=== PATIENT | male | born 1970 | race Caucasian/White ===

== ENCOUNTER 2017-02-18 06:55 | Inpatient (IN) | payer MEDICARE ==
[2017-02-18] VITALS (15 sets, daily range): BP systolic 110–152; BP diastolic 57–92
[~2017-02-18] VITALS: Ht 190.5 cm; Wt 113.9 kg
[~2017-02-18 06:55] MED LIST: BACTRIM DS TAB1 EACH PO; CEPHALEXIN500 MG PO; CIPROFLOXACIN750 MG PO; CLINDAMYCIN150 MG PO; GLIPIZIDE 5MG TA5 MG PO; JANUVIA50 MG PO; KEFLEX 500MG.500 MG PO; LISINOPRIL 10MG10 MG PO; LISINOPRIL 5MG T5 MG PO; METFORMIN HCL850 MG PO; MULTI VITAMINS1 TA1 PO; NORCO 325 MG-101 TAB PO; RIFADIN 300MG300 MG PO; Tetracycline H500 MG PO
--- NOTE | 2017-02-18 13:29 | Anesthesia Record ---
Anesthesia Record Part II Discharge time: 1352 Destination: Second Floor PACU nurse assessment review? Yes Patient is: Awake, Stable Anesthesia complications? No at 3126
--- NOTE | 2017-02-18 13:29 | Anesthesia Record ---
Anesthesia Record Part I Total IV fluids: 1200 EBL (ml): 50 Urine Output: 0 Units of blood given: 0 B/P: 99/54 % SaO2: 94 Pulse: 87 Resps: 16 Temp: 97.6 Patient is: Nasal O2, Oral/nasal airway, Stable, Somnolent Stable to PACU at: 1322 at 1328
--- NOTE | 2017-02-18 14:59 | RADIOLOGY REPORT PS360 ---
KNEE-LIMITED 2 VIEWS-LT HISTORY: patella fx s/p orif ORDERING PHYSICIAN: Bennie Lebron MD PATIENT AGE: 47 years COMPARISON: ORIF of femoral fracture FINDINGS: Status post ORIF patellar fracture. There are 2 Vertical screws and cerclage wires present stabilizing the comminuted fracture which is in good alignment. Postsurgical gas is present along the knee joint and there are skin clips noted. IMPRESSION: Good alignment status post ORIF patellar fracture
--- NOTE | 2017-02-18 14:59 | RADIOLOGY REPORT PS360 ---
KNEE-LIMITED 2 VIEWS-LT HISTORY: Follow-up fracture ORIF LEFT PATELLA ORDERING PHYSICIAN: Bennie Lebron MD PATIENT AGE: 47 years COMPARISON: 02/15/2017 FINDINGS: Status post ORIF patellar fracture. There are 2 Vertical screws and cerclage wires present stabilizing the comminuted fracture which is in good alignment. Postsurgical gas is present along the knee joint and there are skin clips noted. IMPRESSION: Good alignment status post ORIF patellar fracture
[2017-02-19 04:48] VITALS: BP 117/67
[2017-02-19 06:29] LABS: LYMPH # 1.2 K/mm3 (0.7-4.5); LYMPH % 9.2 % (10-50)
[2017-02-19 08:00] VITALS: BP 111/71
--- NOTE | 2017-02-19 08:44 | CONSULT NOTE ---
Consult Note Note: 47-year-old male status post ORIF of the LEFT patella. Patient states he was using scooter to be mobile due to diabetic foot ulcer. He should states his knee slipped off of the scooter and knee landed on the hardwood floor. Patient states he will be mobile with crutches at home. We'll follow up in office to see Kathie after discharge. at 0843
[2017-02-19] MEDS ORDERED: HYDROCODONE/ACE1 TA9 PO (09:47)
--- NOTE | 2017-02-19 09:50 | Discharge Summary Report ---
General Admit date: 02/18/17 Discharge date: 02/19/17 Admission Dx: LEFT patella fracture, comminuted Diabetes mellitus Bilateral diabetic foot ulcerations Discharge Dx: Same Hospital course: Improved. The patient underwent open reduction internal fixation of a LEFT patellar fracture with cannulated screws and tension band technique. This resulted in an essentially anatomic reduction of the articular surface and an extremely strong construct. The patient postoperative course was uncomplicated orthopedically however his creatinine was noted to be elevated at 1.8. Following pharmacy's recommendation, we held the metformin and use sliding scale insulin instead and requested a consult from his family practice office. They have visited the patient and we'll see him postoperatively. At time of discharge, the patient was awake alert no apparent distress. Sensory examination showed pre- existing paresthesias in the foot. Pedal pulses were intact capillary refill approximate 4 seconds. Postoperative x-ray showed appropriate joint latter-day and hardware placement. Problem List Medical Problems Fracture of left patella Osteomyelitis Allergies Coded Allergies: No Known Allergies (02/18/17) Med Rec DC summary Medications Reported Medications METFORMIN HCL (Metformin HCl) 850 MG PO TID Glipizide (Glipizide 5MG) 5 MG PO DAILY Sulfamethoxazole/Trimethoprim (Bactrim Ds Tablet) 1 TAB PO BID at 0967
--- NOTE | 2017-02-19 09:51 | ACUTE CARE PROGRESS NOTE ---
Progress note Date: 02/19/17 Assessment: The patient is awake alert no apparent distress. His lower leg examination shows mild edema but no evidence DVT or other complications. X-rays are appropriate. Patient's pain is well controlled and he is ready for discharge Impression: 1. Fracture of left patella Plan: Physical therapy will see today and place in a T scope brace 0-20 range of motion with a locking when walking. Assist strap will be given. Prescription for Lortab and a walker given patient has a shower chair. I've advised against driving and we have initially given instruction on how to move the leg 0-20 degrees without fine the quadriceps. We have stressed this in the presence of the patient and his spouse. Plan on seeing the patient back in 2 weeks at 0170
[2017-02-19 10:00] VITALS: BP 110/76
--- NOTE | 2017-02-19 10:00 | Operative Note ---
Procedure/Operative Record Date of Procedure: 02/18/17 Pre-op diagnosis: Comminuted LEFT patella fracture Diabetes mellitus Diabetic foot ulcers, bilaterally Post-op diagnosis: Same Procedure performed: Open reduction internal fixation comminuted LEFT patella fracture Surgeon: Bennie Lebron Anesthesia: General anesthetic Indications: Comminuted LEFT patella fracture with articular step-off Description of procedure: Patient was taken the operating room placed in supine position the LEFT lower extremity prepped and draped in usual sterile fashion... The foot was covered with a stockinette and Coban and isolated from the field. Ioban was placed over the knee, the leg exsanguinated, and the tourniquet inflated to 300 torr, and a midline incision made. We then carefully dissected down using full flap dissection technique and a medial arthrotomy was made just enough to palpate the articular surface of the patella and tilt the patella so that the articular surface could be accessed. There was significant step off here. We were able to use a [place] elevator to gently lever this back into position and achieve essentially an anatomic alignment and congruity of the articular surface. We then placed 2 guidewires for the 4.5 mm cannulated screw set by [employer]. We then overdrilled the most medial wire and placed a 46 mm long partially-threaded 4.5 mm diameter cannulated screw by [employer]. This was deliberately placed so that it did not protrude significantly beyond the inferior aspect patella. Good compression was noted and the articular reduction maintained. We then overdrilled the second guidewire and also placed another 46 mm screw. Again the length and position of the screws were checked by C-arm as well as reduction. We then placed a 20-gauge wire through the screws using a [id number] technique for a tension band. A loop was placed in one limb of the wire and the 2 ends brought together to create the other points of tension. We then twisted the wires alternating between the two so as to carefully tension the nonarticular aspect patella. We noted appropriate tensioning of the wire and color changes indicating that appropriate tension had been achieved. We then carefully bent the loops so that no sharp ends protruded. We then carefully tapped the loops to further decrease any prominence. We have previously evacuated hematoma and we irrigated again and digitally and radiographically checked the final construct and ensured that it was appropriate and the articular cartilage was flush. Range of motion testing on the table of the construct stable to 40 degrees of flexion, limit of the flexion test. No loose bodies were retrieved. We then began closure. The arthrotomy site was closed with #1 Vicryl [id number] sutures and the subcutaneous closure was with 2-0 Vicryl. Skin closure was with dean. The patient's dressings were applied and he was then transported to the recovery room in satisfactory condition. X-rays and knee immobilizer to be placed in the recovery room EBL (ml): 50 (from hematoma) at 1000
[2017-02-19 10:37] LABS: NEUTROPHILS 86 % (42-76)
== END 2017-02-19 11:05 | disposition home or self-care (01) | DRG 516 ==
LOC: 2ND 06:55 → OBSERV 06:55 → 2ND 07:06 → OBSERV 10:24 → 2ND 10:24 → OBSERV 12:00 → SDC 12:00 → EDSTATUS 12:00 → 2ND 14:21
PROVIDERS: Orthopaedic Surgery
PROC: 0QSF04Z Reposition Left Patella with Internal Fixation Device, Open Approach (ICD-10-PCS; principal; 2017-02-18 12:00)
DX: S82.042A Displaced comminuted fracture of left patella, initial encounter for closed fracture (principal); L97.421 Non-pressure chronic ulcer of left heel and midfoot limited to breakdown of skin; E11.621 Type 2 diabetes mellitus with foot ulcer; W05.1XXA Fall from non-moving nonmotorized scooter, initial encounter; Z79.4 Long term (current) use of insulin
CPT/HCPCS: C1713; G0238; J0131; J2405

== ENCOUNTER → 2017-04-01 | Outpatient (CLI) | payer MEDICARE ==
[~2017-04-01] MED LIST changes: +HYDROCODONE/ACE1 TA9 PO
--- NOTE | 2017-04-01 15:04 | RADIOLOGY REPORT PS360 ---
KNEE-LIMITED 2 VIEWS-LT HISTORY: Follow-up patellar fracture POST OP FU ORDERING PHYSICIAN: Bennie Lebron MD PATIENT AGE: 47 years COMPARISON: 02/15/2017, 03/05/2017 FINDINGS: There are 2 screws present within the patella along with cerclage wire stabilizing comminuted patellar fracture involving the midinferior aspect of the patella with good alignment of the fracture fragments. No significant callus formation and no significant change from the previous exam. IMPRESSION: No change status post ORIF patellar fracture
== END ==
LOC: RAD 13:15
DX: Z47.89 Encounter for other orthopedic aftercare (principal)

== ENCOUNTER → 2017-10-12 | Outpatient (CLI) | payer MEDICARE ==
[2017-10-12 16:44] LABS: LYMPH # 2.3 K/mm3 (0.7-4.5); LYMPH % 27.9 % (10-50)
[2017-10-12 16:50] LABS: HEMOGLOBIN 14.1 g/dL (14.1-18.0)
--- NOTE | 2017-10-12 17:05 | RADIOLOGY REPORT PS360 ---
CHEST(2 VIEWS-NOT PORTABLE) HISTORY: PRE-OP CLEARANCE FOR HAMMERTOE OF RIGHT FOOT ORDERING PHYSICIAN: FLAVIO BHANDARI PATIENT AGE: 47 years COMPARISON: None available FINDINGS: The cardiomediastinal silhouette and pulmonary vascularity are within normal limits. The lungs are clear without infiltrates, suspicious nodules, or pleural effusions. No acute bony abnormalities. IMPRESSION: Negative chest, no acute finding
[2017-10-12 17:18] LABS: BUN 23 mg/dL (7-18)
[2017-10-12 17:20] LABS: GFR (ESTIMATED) 47 ML/MIN (>60)
[2017-10-14 10:39] LABS: Creatinine, Urine 58.2 mg/dL (Not Estab.); Microalbumin, Urine 40.5 ug/mL (Not Estab.)
== END ==
LOC: LAB 16:32
PROVIDERS: Physician Assistant
DX: M20.41 Other hammer toe(s) (acquired), right foot (principal); E11.29 Type 2 diabetes mellitus with other diabetic kidney complication; Z01.810 Encounter for preprocedural cardiovascular examination; Z01.811 Encounter for preprocedural respiratory examination; Z01.812 Encounter for preprocedural laboratory examination